=== PATIENT | male | born 1995 | race African-American/Black ===

== ENCOUNTER 2017-07-18 18:51 | Emergency (ER) | payer MEDICAID ==
[~2017-07-18] VITALS: Ht 180.3 cm; Wt 80.0 kg
[2017-07-18] MEDS ORDERED: IBUPROFEN 400MG TABLET PO ONE (20:45)
[2017-07-18] MEDS ORDERED: ACETAMINOPHEN 500MG TABLET PO ONE (20:45)
[2017-07-18 20:52] VITALS: BP 157/70
== END 2017-07-18 20:57 | disposition home or self-care (01) ==
LOC: EDSEX 18:51 → ER 19:20
DX: M25.522 Pain in left elbow (principal); V43.52XA Car driver injured in collision with other type car in traffic accident, initial encounter; Y93.89 Activity, other specified; Y92.89 Other specified places as the place of occurrence of the external cause; Y99.8 Other external cause status
CPT/HCPCS: 99283